=== PATIENT | female | born 1980 | race Caucasian/White ===

== ENCOUNTER 2019-11-25 05:27 | Day surgery (SDC) | payer MEDICARE, SELFPAY ==
--- NOTE | 2019-11-21 10:30 | EKG12_ITS ---
Test Reason : PRE-OP Blood Pressure : / mmHG Vent. Rate : 075 BPM Atrial Rate : 075 BPM P-R Int : 162 ms QRS Dur : 088 ms QT Int : 398 ms P-R-T Axes : 058 056 029 degrees QTc Int : 444 ms Normal sinus rhythm Normal ECG Confirmed by KASHIF ADAME, MADHAVI ([id number]), loan expeditor STEPHANIE WILDER ([id number]) on 11/22/2019 8:56:45 AM Referred By: Lorraine Aguero Confirmed By:MADHAVI ROWLAND MD
[2019-11-21 11:05] LABS: Absolute Lymphocyte Count 2.78 X10^3/uL (0.83-4.51); Absolute Neutrophil Count 7.8 X10^3/uL (2.0-7.7); Basophil% 0.9 % (0-1); Eosinophil# 0.21 X10^3/uL; Eosinophils% 1.8 % (0-5); Hematocrit 42.8 % (37-47); Hemoglobin 14.1 g/dL (12.0-15.0); Lymphocyte # 2.78 X10^3/ul (4.0); Lymphocyte % 23.9 % (19-41); Mean Corp Hgb Conc 32.9 g/dL (32-36); Mean Corpuscular Hgb 30.6 pg (27.0-32.0); Mean Corpuscular Volume 92.8 fL (81-99); Monocyte# 0.64 X10^3/uL; Monocyte% 5.5 % (0-10); NRBC Flagged by Analyzer 0 % (0-5); Neutrophil # 7.77 X10^3/uL (2.7-7.7); Neutrophil % 66.8 % (47-70); Platelet Count 313 K/mm3 (150-450); RBC Distribution Width CV 12.3 % (11.6-14.6); RBC Distribution Width SD 41.5 fl (35.1-43.9); Red Blood Count 4.61 M/mm3 (4.2-5.4); White Blood Count 11.6 K/mm3 (4.4-11.0)
[2019-11-21 11:30] LABS: ALB/GLOB Ratio 0.8 RATIO (0.9-2.4); AST(SGOT) 43 U/L (15-37); Alanine Aminotransfer ALT/SGPT 41 U/L (13-56); Albumin, Serum 3.3 g/dL (3.2-5.0); Alkaline Phosphatase 84 U/L (45-117); Anion Gap 5 (5-15); BUN 9 mg/dL (7-18); BUN/Creat Ratio 11.1 RATIO (10-20); Chloride 108 mmol/L (98-107); Creatinine, Serum 0.81 mg/dL (0.55-1.02); EST Glomerular Filtration Rate 85 mL/min (>60); Est Glom Filt Rate - Afr Amer 102 mL/min (>60); Globulin 4.1 g/dL (2.2-4.2); Glucose 85 mg/dL (74-106); Potassium 3.9 mmol/L (3.5-5.1); Protein, Total 7.4 g/dL (6.4-8.2); Sodium Level 139 mmol/L (136-145)
[2019-11-25] VITALS (7 sets, daily range): BP systolic 113–143; BP diastolic 81–92; PULSE 68–88; RESP 16; TEMP 36.1–36.5; O2SAT 94–98; BMI 36.1
--- NOTE | 2019-11-25 | GANG_PTH ---
PATIENT: PAUL MCGUIRE LOC: [facility] – [place] U#:[id number] AGE/SX: 38/F ROOM: RE11/25/[address]: Dr. Lorraine Aguero DPM : 1980 BED: DIS: 11/25/2019 SPEC #: [id number] RECD: 11/25/19 13:37 STATUS: JEREMY OMER #: [id number] ABEL: 11/25/19 00:[address]: Lorraine Aguero DEPT: SURGICAL PATHOLOGY RECD BY: Andreas Walker ENTERED: 11/25/19 13:38 SP TYPE: GANGLION OTHR DR: MD Dr. Joon Leo MD Dr. William Lago, MD Tissues: A - GANGLION CYST B - Tendon sheath, NOS Procedures: Surgery Specimen Level III HEADER OPERATION: Lower extremity lateral ankle stabilization PRE-OP DIAGNOSIS: TISSUE SUBMITTED: A - Ganglion vs synovitis, right peroneal, B - Right peroneal tendon MICROSCOPIC DIAGNOSIS A. Ganglion vs synovitis, right peroneal: Fragments of fibroadipose and fibroconnective tissue with reactive changes and changes consistent with ganglion cyst and skeletal muscle tissue. B. Right peroneal tendon: Fragments of dense fibroconnective tissue with reactive changes and fragments of fibroadipose tissue and skeletal muscle tissue. CHRISTOPHER:crystal 11/28/19 MICROSCOPIC DESCRIPTION Slides are reviewed. GROSS DESCRIPTION A - Received in fixative is one container labeled with the patient's name and designated ganglion vs synovitis, right peroneal. The specimen consists of multiple irregular fragments of alvarado-pink soft tissue that in aggregate measure 2.5 x 2 x 0.3 cm. The entire specimen is submitted in one cassette. B - Received in fixative is one container labeled with the patient's name and designated right peroneal tendon. The specimen consists of multiple pieces of alvarado-pink tendinous tissue that in aggregate measure 5 x 3 x 0.3 cm. The entire specimen is submitted in two cassettes. / SJ:crystal 11/25/19 TC:5 CPT:
[2019-11-25] MEDS: Lactated Ringers 1,000 ML 100 ML IV (06:23)
--- NOTE | 2019-11-25 07:30 | RAD_ITS ---
STUDY: X-RAY - RIGHT ANKLE REASON FOR EXAM: Female, 38 years old. Stabilization with internal brace TECHNIQUE: For intraoperative view(s) of the ankle. COMPARISON: None. FINDINGS: Intraoperative imaging provided for stabilization. RAD/Ankle 2 Views IMPRESSION: Intraoperative fluoroscopic services provided. Electronically Signed: Mustapha Paiz, at 15:19 EST , Service support ,
[2019-11-25] MEDS: Bupiv/Epi 0.5% Mpf 30 ML Vial (11:29)
[2019-11-25] MEDS: Bupivacaine Mpf 0.5% 30 ML VIAL (11:30)
--- NOTE | 2019-11-25 11:50 | PCM.DC.POD ---
Discharge Diet: No Restrictions Discharge Activity: May Not Drive, May not drive while taking narcotic pain medications. Weight Bearing Status: No weight bearing Keep extremity elevated above heart level: Right Leg Call your doctor if your incision/area has: Continuous Slow Oozing, Sudden Increased Bleeding, Increased Pain/ Swelling, Increased Redness, Foul Smelling Discharge, Swelling at the incision site Call your doctor if you observe: Fever of 101 or Higher, Calf discomfort, Uncontrolled pain Cleanse incision/area with: Keep Dressing Clean & Dry Allergies/Adverse Reactions: Allergies adhesive Allergy (Verified 11/25/19 05:56) Hives azithromycin [From Zithromax Z-Attila] Allergy (Verified 11/25/19 05:56) Anaphylaxis cephalexin monohydrate [From Keflex] Allergy (Verified 11/25/19 05:56) Hives clindamycin Allergy (Verified 11/25/19 05:56) Other dicyclomine HCl [From Bentyl] Allergy (Verified 11/25/19 05:56) Hives doxycycline Allergy (Verified 11/25/19 05:56) Other guaifenesin [From Robitussin] Allergy (Verified 11/25/19 05:56) Anaphylaxis latex Allergy (Verified 11/25/19 05:56) Swelling morphine Allergy (Verified 11/25/19 05:56) Hives propranolol Allergy (Verified 11/25/19 05:56) Other promethazine HCl [From Phenergan] Adverse Reaction (Verified 11/25/19 05:56) Other Medications to take at Discharge Albuterol Inhaler [Ventolin Hfa] 2 puff INHALATION Q4H PRN PRN 09/05/13 Gabapentin [Neurontin] 600 mg PO 4X/DAY 09/05/13 Esomeprazole Mag Trihydrate [Nexium] 40 mg PO DAILY 05/11/15 Cetirizine HCl [Zyrtec] 10 mg PO DAILY 11/18/19 Estradiol [Estrace] 2 mg PO DAILY 11/18/19 Ibuprofen [Motrin] 800 mg PO TID PRN PRN 11/18/19 Venlafaxine XR [Effexor Xr] 75 mg PO DAILY 11/18/19 Orders to be completed after discharge: CBC W/Diff, Automated Time Frame: 11/18/19, Facility: [facility], Location: Laboratory Comprehensive Metabolic Profil Time Frame: 11/18/19, Facility: [facility], Location: Laboratory Primary Care Physician: Brian Plasencia MD [Primary Care Provider] - Test Results: Test results from this visit will be discussed in further detail at your follow-up appointment, if applicable. Please Follow Up With: Lorraine Aguero DPM When: [facility]. Call [phone] sooner if concerns. Proposed Discharge Date: 11/25/19
--- NOTE | 2019-11-25 11:54 | OP.PCM_ITS ---
Problem List (1) Right ankle instability Status: Chronic (2) Ankle pain Status: Chronic (3) Peroneal tendon tear Status: Chronic (4) Synovitis of right ankle Status: Chronic Report of Operation Date of Procedure: 11/25/19 Pre-Operative Diagnosis: 1. 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 2. Right peroneus brevis tendon tear. 3. Right ankle synovitis Post-Operative Diagnosis: 1. 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 2. Right peroneus brevis tendon tear. 3. Right ankle synovitis and chondromalacia. 4. Right ganglion cyst near peroneal tendon the lateral ankle ligaments Surgery/Procedure Performed:: 1. Right ankle arthroscopy with synovectomy and debridement of chondromalacia. 2. Right lateral ankle stabilization with internal fixation including Brostrom. 3. Right repair of peroneus brevis tend on tear Description of Surgical Findings:: Hemostasis: Right thigh tourniquet, 315 mmHg, approximately 60 minutes Materials: Arthrex internal brace with 4.75 and 3.4 swivel lock anchors, 2 small bone taks, 4-0 nylon, 2-0 and 3-0 Vicryl Complications: None Specimens were sent Findings: Stability restored after ankle stabilization, chondromalacia and ankle synovitis debridement was successful, repair of peroneal tendon was performed and this remains smooth and gliding with passive range of motion, ganglion cyst noted communicating between the lateral ankle ligaments and also peroneal tendon The patient tolerated the procedure anesthesia well. She was transported to the PACU vital signs stable and vascular status intact to the right lower extremity. She will be discharged home today upon continued stability. She will ice and elevate for pain and inflammation management and maintain a nonweightbearing status. She will follow-up in the outpatient setting. Her postoperative orders were entered electronically. Intraoperative fluoroscopy was utilized to confirm proper placement of anchors and also to confirm stability with post repair stress tests. The ankle was maintained in a rectus position and stability was restored. senior investment manager: none - Surgeon: Lorraine Aguero DPM Water Truck Driver: Sana Alan PGY2 Type of Anesthesia:: General, Local - Intraoperative: 10 cc of Marcaine with epinephrine was administered intra-articular to right tibiotalar joint and also to the portal sites Intraoperative: 20 cc of one-to-one mixture of 1% lidocaine plain and 0.5% Marcaine plain administered in high ankle block fashion and infiltrative manner to the surgical repair sites Specimen's removed: 1. Devitalized and diseased Peroneus brevis tendon. 2. Ganglion cyst of right peroneal and ankle ligaments Estimated Blood Loss (mL): < 150 mL Description of Procedure: Indications: This 39-year-old female with significant past medical history of fibromyalgia, depression, PTSD, migraines, and bipolar has experienced chronic right ankle instability and pain in which she is unable to complete daily activities. She has recurrent falls and pain. She has failed conservative care including bracing, therapy, medication, activity modification, immobilization, and rest. She elects to proceed with surgical intervention at this time. Her neurovascular status is intact. Clinical paino on palpation is over the lateral ankle ligaments, the peroneal tendon area, and also to the anterior ankle joint line. She did also have relief with diagnostic injection to the right ankle joint. She did not have pain at the syndesmosis area or with the proximal leg squeeze test on the right lower extremity. She does have some laxity and pain with anterior drawer test with additional crepitation. Ankle x-rays do not demonstrate any fracture or dislocation or acute degenerative changes. Ankle mortise appears to be in a well aligned rectus position and there is no visualized osteochondral defect of the talus noted. Preoperative MRI demonstrated acute scarring of the anterior talar tibial ligament structure, joint effusion of the tibiotalar location, tearing and inflammation around the peroneal tendons, and I also suspected a potential ganglion cyst near the peroneal tendons due to the small homogenous well defined cyst seen on several views. There is no visualized talar osteochondral defect or deltoid ligament injury suspected. The preoperative indication, planned procedure, possible benefits, risks, complications, and anticipated healing time management were discussed in detail with the patient. She understands and elects to proceed with surgery at this time. Informed surgical consent and surgical limb were signed. She understands risks and complications include but not limited to following: pain, swelling, scarring, delayed or nonhealing, over or under correction, need for further surgery, continued instability, blood clot, allergic reaction, loss of limb, function, life, chronic pain syndrome. No guarantees were made. She was advised on smoking cessation. I answered all her questions. Her preoperative history and physical exam was reviewed and her preoperative diagnostic data were also reviewed. Procedure in detail: The patient was transferred to the operating room via cart in the supine position. Final verification of patient, surgery, limb designation was performed via the timeout procedure. General anesthesia was initiated by the anesthesia team. Preoperative antibiotic was administered. Her allergies are noted. Next, a well-padded right thigh tourniquet was placed. The right limb was placed in a well-padded ferkel leg garcia and the right lower extremity was prepped and draped in the usual aseptic manner. The planned arthroscopic portal sites and vital structures were confirmed and marked preoperatively. Arthroscopy equipment was set up and and white balance was performed. The ankle joint level was confirmed with intraoperative fluoroscopy and also was insufflated with Marcaine with epinephrine and additional lactated Ringer at room temperature. Dorsiflexion of the ankle was noted at this time. The purpose of this was to anesthetize the portal sites and reduce blood in the surgical field to improve visualization. The anterior medial portal site was entered with a small incision and hemostat was used to perform blunt dissection down the capsular layer. A blunt obturator was used to enter the tibiotalar joint space and was further replaced with the arthroscope with cannula. Transillumination was performed to the lateral aspect and an additional small stab incision was made lateral to the extensor tendon and blunt dissection was performed to enter the capsular layer taking care to identify, protect, and retract any neurovascular structures throughout the entire procedure. The tourniquet was inflated at this time to improve visualization. An initial joint survey was conducted with a probe. There was a moderate amount of synovitis to the anterior tibiotalar communication as well as the lateral gutter more than the medial gutter. A 3.5 shaver was entered into the joint and a synovectomy was performed. Next a probe was entered into the willie int and the cartilage was tested for any soft spots or disruption in which none of this was identified. There was no osteochondral lesions identified. She had some chondromalacia to the central dorsal anterior tibia and this was debrided with shaver and grasper. The anterior margin of the tibia was also inflamed with some proliferation of tissue, and this was also smoothed out with the shaver as well. The decision to move forward with repair was made given this arthroscopic information in combination with clinical setting and MRI findings. At this time the arthroscopy was completed and imaging studies were obtained. The arthroscopy equipment was next removed from the ankle joint and the portal sites were irrigated. Reapproximation of the skin portal sites was performed with horizontal mattress 4-0 nylon. The right lower extremity was removed from the leg garcia and was placed in a straight standard supine position on the operating room table. Next, attention was directed to the lateral aspect of the right ankle joint. At this time, a fluoroscopy guided ankle stress test was performed with increased talar tilt and anterior translation with anterior drawer test. Instability was seen and further repair was started. An 8 cm curvilinear incision was made over the distal aspect of the posterior distal fibula extending onto the lateral aspect of the foot to gain good access to the lateral ankle ligament complex as well as the peroneal tendons. Care was taken to identify, protect, and retract all neurovascular structures throughout the entire procedure. Blunt dissection was performed to expose the peroneal sheath. This was incised and tagged for later reapproximation. The peroneal tendons were investigated and there was significant tearing of the peroneus brevis tendon involving approximately 50% and extended about 6 cm. All devitalized tendon were debrided and excised from the table. The peroneus brevis tendon was tubularized and further anastomosed to the peroneus longus tendon which appeared to be intact. Throughout this dissection a ganglion cyst was identified and it measured approximately 1-1/2 cm in length by 0.5 cm in width and had a gelatinous straw colored drainage. No necrosis, infection, or infiltration to adjacent structures were identified. This was excised and appeared to be coming off of the peroneal tendon sheath and was sent to pathology for evaluation. The debrided peroneus brevis tendon was also sent to pathology for further evaluation. The peroneal sheath was next reapproximated utilizing horizontal mattress technique with 4-0 nylon. The ankle joint was taken through passive range of motion is noted with tendon complex glided smoothly under the repaired peroneal sheath and was considered stable without subluxation. Blunt dissection was next performed down to the chronic hypertrophic thickened anterior talofibular and calcaneofibular ligaments that seemed to be invaginating into the lateral ankle gutter as well. Additional ganglion cyst gelatinous material was identified in the site and care was taken to debride any of this residual cyst and adjacent communicating soft tissue; this was included in the pathology specimen as well. The thickened lateral ankle ligaments were incised with a 15 blade scalpel and were debrided with a rongeur. This structure was attenuated, loose, and slightly discolored. Joint fluid was noted. The structure was reflected off of the distal aspect of the fibula and was removed with a rongeur. Next the target site for the internal brace swivel lock on the talus body was selected utilizing intraoperative flouroscopy for confirmation. A 4.75 swivel lock anchor was applied according to standard protocol to the body of the talus taking care to avoid the adjacent joint structures. Next, two small orin anchors were applied to the distal fibula to the enforce the insertion aspects of the ATFL as well as the calcaneofibular ligament. The material of the internal brace was a fiber tape that was applied in an extra articular manner. The Brostr?m part of the procedure was performed at this time utilizing pants over vest technique. Next the proximal part of the internal brace was applied to the distal fibula centrally between the previously applied taks, and was secured with a 3.5 swivel lock anchor. Care was taken to avoid over tightening the structure of placing a hemostat underneath it during the securing process. This was further reinforced with 2-0 Vicryl. Care was also taken to complete this repair with the ankle hanging over a stack of towels to prevent anterior translation, and by holding the left foot on the ankle in a neutral and slightly everted position. Solid fixation was achieved and a fluoroscopy guided stress test was performed at this time including talar tilt and anterior drawer test. No gross instability was noted and it was improved compared to preoperative assessment. No additional acute injuries were noted. The tourniquet was deflated at this time. Brisk capillary refill time was noted to all digits of the right foot. Local anesthetic was administered as noted. No pulsatile bleeding was noted and minimal electrocauterization was needed. Deep closure was performed with 2-0 Vicryl and the skin was reapproximated with 4-0 nylon utilizing simple and horizontal mattress techniques. Local anesthetic was administered as noted. A postoperative dressing consisting of adaptic, gauze, Kerlix, and abdominal pads were applied. Next a well-padded right posterior mold was applied with the right ankle in a neutral with slightly everted position was applied. After procedure: The patient tolerated the procedure and anesthesia well. She was transported to the PACU with vital signs stable and vascular status intact to the right lower extremity. She was advised to ice and elevate for pain and inflammation management. She was advised to maintain a strict nonweightbearing status to right lower extremity with her dressing and splint intact. She has crutches at home already and an additional knee walker prescription was previously provided. She was given pain medication prescription and was advised previously on proper and safe use in the post operative setting ([place]). We reviewed DVT prophylaxis and risk factors. She is considered very low risk and she will proceed without medication prophylaxis. She understands the signs and symptoms and will continue to monitor for these. To [facility] 1 week or call sooner if she has any questions or concerns. Her postoperative orders were entered electronically. Lorraine Aguero DPM, [facility] Grafts/Implants Used: Arthrex swivel lock anchors and taks - Complications None - Admit VTE Documentation VTE Present on Admission: Yes VTE Pharm Prophylaxis ordered?: No Reason prophylaxis not ordered:: Procedure Not Indicated
[2019-11-25] MEDS: BENZOCAINE/MENTHOL 1 LOZENGE 2 LOZENGE MUCOUS MEM (12:44)
== END 2019-11-25 13:39 | disposition home or self-care (01) ==
LOC: SDC 05:28 → AC 05:29
PROVIDERS: Family Provider Family Medicine; PCP Family Medicine; Referring Provider Podiatrist; Visit Provider Podiatrist
PROC: (CPT 29999; principal; 2019-11-25 07:15)
DX: M25.371 Other instability, right ankle (principal); S86.311A Strain of muscle(s) and tendon(s) of peroneal muscle group at lower leg level, right leg, initial encounter; M65.871 Other synovitis and tenosynovitis, right ankle and foot; M67.471 Ganglion, right ankle and foot; M79.7 Fibromyalgia; F43.10 Post-traumatic stress disorder, unspecified; K21.9 Gastro-esophageal reflux disease without esophagitis; M50.30 Other cervical disc degeneration, unspecified cervical region; F31.76 Bipolar disorder, in full remission, most recent episode depressed; M47.12 Other spondylosis with myelopathy, cervical region; Z51.81 Encounter for therapeutic drug level monitoring; Z80.0 Family history of malignant neoplasm of digestive organs; Z72.0 Tobacco use; G43.909 Migraine, unspecified, not intractable, without status migrainosus; R29.6 Repeated falls
CPT/HCPCS: 27696; 28200; 29895; 29898; 36415; 73600; 76000; 80053; 85025; 88304; 93005; J7040; J7120

== ENCOUNTER 2020-02-13 07:30 | Outpatient (RCR) | payer MEDICARE, MEDICAID, SELFPAY ==
[2019-11-25 05:59] VITALS: BMI 36.1
--- NOTE | 2020-01-09 07:51 | HP.PTEVAL ---
Patient's Visit Information PAUL MCGUIRE is a 39 year old F referred to Physical Therapy by Lorraine Aguero DPM with a diagnosis of Right Ankle Surgery. Date of Evaluation: 01/09/20 Physical Therapist: Mabel Martinez DPT - Visit Plan Frequency: 3x /Week Duration: 4 Weeks Plan: Right Ankle Surgery 11-25-2019- PT will call MD about WB in shoe in therapy- Focus on LE ROM, strength and proprioception. 01/08 HEP Given: Ankle ROM DF,PF,Inv,Ever, Circles, Alphabet, Gastroc Stretching with towel - Subjective Subjective: Patient reports that she has done a lot of damange- but as she saved a baby off the couch December 2 years ago and it snapped- progressively got worse so she ended up having surgery Nov 25, [address] Bowers. Right Ankle arthroscopy with synovectomy, lateral ankle stabilization with internal bracing, peroneal brevis tear repair with andostenosis to peroneal longus tendon Sur[facility] at [facility] and was given WB in the boot about a week ago. She does not wear the boot at night the past 4 days but she wears it all day. Pain at its worst is a 10/10 but it stays generally 7-8/10 Best is a 6/10 Agg: everything, walking, anything she has to do with it. Best: ice and elevation. Pain is located over the whole ankle- but a lot of its behind the ankle. Radiates to lateral aspect of the lower leg and numbness and tingling in the toes since surgery. Describes the pain in the ankle as sharp/shooting. Reports extra knee pain since she has been walking. She has 3 teenagers at home- does not work. Fully I prior to surgery- is back to driving- she just takes the boot off and uses her left foot the brake. Sleep: disturbed- usually a side sleeper PMHx: Bipolar and PTSD, tremors, chronic migarines, asthmatic, GERD Meds: Gabapentin, Estroadol, Effexor, Nexium, Motrin PRN, Inhaler PRN, Zytrec - Objective Posture: FH, RS- can correct but does not maintain. Gait: antalgic- CAM walker on the right LE- no heel/toe pattern- decreased stance on the right LE- does not put any weight through the right LE without the boot- had to stop 1x in 800 feet ambulation to let a wave of pain wash through the ankle. Observation: incision healing well no s/s of infection. Palpation: tender to touch on medial malleolus behind the malleolus and into the achilles. Lateral achilles near incision. Not tender over the incision. Sensation: WFL. Girth: Malls: 28.5 cm Figure 8:55 cm Mets:22.5 cm. ROM: DF: 5 degrees, PF: 50 degrees Inver: 20 degrees Ever: 15 degrees- when performing exercises increased muscle movement with Inv/Ever but no pain. Strength:Ankle: 4-/5 throughout available range- reports discomfort with Inv/Ever testing. *No WB testing outside the boot today until okay by the will progress and evaluate* - Goals Goal 1:: Patient will be I with HEP and progression Goal Time Frame: 4-6 Weeks Goal 2:: Patient will ambulate >300 feet with a normalized gait pattern Goal Time Frame: 4-6 Weeks Goal 3:: Patient will SLS for 30 sec without LOB Goal Time Frame: 4-6 Weeks Goal 4:: Patient will report back to all normal ADL's with less than 3/10 pain Goal Time Frame: 4-6 Weeks - Rehabilitation Potential Physical Therapy Diagnosis: Patient presents with hypomobility- she has decreased ROM, proprioception, flex, strength and muscular endurance s/p right ankle surgery leading to abnormal gait and decreased participation with ADL's. Rehabilitation Potential: Fair - Anticipated Interventions Patient/Client Instruction: Educate patient on: Benefits of Fitness Program Therapeutic Exercise to Include: Strength training, Endurance training, Balance training, Agility training, Body mechanics, Postural training, Flexibilty training, Gait and locomotor training, Neuromotor development, Passive ROM, Active ROM, Dynamic Lumbar Stabilization For the Purpose of:: To improve muscle performance and motor function Functional Training to Include: Gait training TENS: Yes Cryotherapy (ice pack, ice massage): Yes Thermo therapy (hot pack): Yes Ultrasound (thermal/non thermal): No For the Purpose of:: To decrease swelling/inflammation Thank you for the opportunity to evaluate your patient. For Medicare and Medicare HMO plans, please review the plan of care and approve it. It will need to be FAXED BACK to us at [phone] for Medicare purposes. For Medicare only, by signing this I certify the plan of care. Please let me know if there are questions or concerns regarding this plan of care. Physician Signature: Date:
--- NOTE | 2020-02-13 07:45 | HP.PTDCSUM ---
It has been my pleasure to treat PAUL MCGUIRE referred by Lorraine Aguero DPM, with the diagnosis of Right Ankle Surgery for a total of 7 visit(s). Discharge Date: 02/13/20 Please see the following information for a summary of their discharge status. Subjective: Sees doctor 03/01/20. Still swollen and sore at t imes like yesterday when she was on it all day. Was 7/10 last night and 2/10 this am. Activities normal at home. Ankle still keeps her up alot but she has always had sleep issues. Disabled. Would normally be camping this time of year but it is shut down. Daily exercises with band going well. Ready to be done with PT and will ex at home. Right Ankle Pain Intensity (Out of 10): 2 % Improvement: 75 Objective/Function: 8 Df, 50 PF, 20 inv and 10 eversion. 5/5 strength ankles all motions without increased pain today. SLS 30+ seconds. Walks normal and steps normal without rail, some slight 2/10 discomfort while ambulating. Goal 1:: Patient will be I with HEP and progression Goal Progress: Goal Met Goal 2:: Patient will ambulate >300 feet with a normalized gait pattern Goal Progress: Goal Met Goal 3:: Patient will SLS for 30 sec without LOB Goal Progress: Goal Met Goal 4:: Patient will report back to all normal ADL's with less than 3/10 pain Goal Progress: Goal Met Plan: d/.c to HEP. To see doctor in 2 weeks. If there are questions or concerns regarding this patient's physical therapy, please feel free to call me at [phone]. Thank you for the referral of this patient. Sincerely, Jaxon Castro, DPT, OCS, CSCS
== END 2020-02-13 19:00 | disposition home or self-care (01) ==
LOC: PT 07:30
PROVIDERS: PCP Family Medicine; Referring Provider Podiatrist; Visit Provider Podiatrist
DX: M79.2 Neuralgia and neuritis, unspecified (principal); G89.29 Other chronic pain; Z98.890 Other specified postprocedural states
CPT/HCPCS: 97014; 97110; 97161; 97164; G0283

== ENCOUNTER → 2020-10-03 15:25 | Outpatient (CLI) | payer MEDICARE, MEDICAID, SELFPAY ==
[2020-09-11 09:08] VITALS: BMI 32.8
--- NOTE | 2020-10-03 15:37 | MRI_ITS ---
STUDY: MRI RIGHT ANKLE WITHOUT CONTRAST REASON FOR EXAM: Medial right ankle pain for more than 3 years, worsening in the past 6 months, surgery 11/25/2019. TECHNIQUE: Standardized fat and water weighted pulse sequences were obtained in all 3 orthogonal planes. COMPARISON: Intraoperative images 11/25/2019 and radiographs 07/15/2011. FINDINGS: Normal subcutis adipose space. There is no space-occupying lesion in the tarsal tunnel. There is a very small volume of fluid in the posterior tibialis tendon sheath (T2 axial images 7-9, 14, 17). The posterior tibialis tendon is morphologically normal. There is a small accessory navicular. Normal flexor digitorum longus tendon. Normal flexor hallucis longus tendon. There is a very small volume of fluid in the retromalleolar and submalleolar peroneal tendon sheath (inversion recovery sagittal images 5, 6). There is a longitudinal split of the perimalleolar peroneus brevis tendon (T1 axial images 10-19). The peroneus longus tendon is morphologically normal. Normal tibialis anterior tendon. Normal extensor hallucis longus tendon. Normal extensor digitorum longus tendons. Normal Achilles tendon and teno-osseous insertion. Normal plantar fascia. There is a plantar calcaneal enthesophyte. Normal intrinsic muscles of the rearfoot. Normal distal tibiofibular syndesmotic ligamentous complex. Although there is artifact from anchors, the reconstructed anterior talofibular ligament appears intact (inversion recovery axial oblique series 11 images 12, 13). Normal calcaneofibular and posterior talofibular ligaments. Normal subtalar ligaments and sinus tarsi. Normal deltoid ligamentous complexes. Normal plantar calcaneonavicular (spring) ligament. There is an osteochondral lesion of the superior talar dome medial to the midline proximal to the anchor in the talus (T1 sagittal image 12; T1 axial image 14) measuring approximately 1.2 x 0.7 cm (AP x transverse) with bone edema of the fragment and parent bone (inversion recovery sagittal image 12). There is an osteochondral lesion of the opposing tibial plafond (T1 sagittal image 13) with cystic change of the fragment and bone edema of the parent bone (inversion recovery sagittal image 13). Normal subtalar articulations. There are small marginal dorsal osteophytes of the talonavicular articulation. Normal calcaneocuboid articulation. Normal navicular-cuneiform articulations. 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 Longitudinal split of the peroneus brevis tendon and very mild peroneal tenosynovitis. Very mild posterior tibialis tenosynovitis. Intact reconstructed anterior talofibular ligament. No demonstrated space-occupying lesion in the tarsal tunnel. Electronically Signed: Noman Vitale MD at 7:58 EST Tel , Service support ,
== END ==
PROVIDERS: PCP Family Medicine; Referring Provider Podiatrist; Visit Provider Podiatrist
DX: M76.821 Posterior tibial tendinitis, right leg (principal); G57.51 Tarsal tunnel syndrome, right lower limb; G89.29 Other chronic pain
CPT/HCPCS: 73721